=== PATIENT | female | born 1970 | race Caucasian/White ===

== ENCOUNTER 2017-10-09 15:35 | Emergency (ER) | payer SELFPAY ==
[~2017-10-09] VITALS: Ht 162.6 cm; Wt 126.2 kg
[~2017-10-09 15:35] MED LIST: LITE COAT ASPI325 M1 PO; LOW DOSE ASPIRI81 M1 PO; NOHOMEMEDS; ULTRAM50 MG PO; XARELTO15 MG PO; XARELTO20 MG PO
[2017-10-09 18:05] VITALS: BP 138/86
== END 2017-10-09 18:06 | disposition home or self-care (01) ==
LOC: EME 15:35
DX: M79.604 Pain in right leg (principal); M71.21 Synovial cyst of popliteal space [Baker], right knee; Z86.718 Personal history of other venous thrombosis and embolism; Z86.711 Personal history of pulmonary embolism
CPT/HCPCS: 93971; 99281; 99283